=== PATIENT | female | born 1980 | race Caucasian/White ===

== ENCOUNTER 2018-12-04 23:35 | Emergency (ER) | payer SELFPAY ==
[2018-12-04 23:38] VITALS: BMI 25.0
[2018-12-04 23:46] VITALS: RESP 18; TEMP 98.4; O2SAT 100
[2018-12-05] MEDS ORDERED: Sodium Chloride 0.9% 500 ML IV STA (00:08)
[2018-12-05 00:23] VITALS: BP 97/54; PULSE 78
--- NOTE | 2018-12-05 00:36 | ED PDOC ---
Arrival/HPI - General Chief Complaint: Headache Time Seen by Provider: 12/04/18 23:39 Historian: Patient - History of Present Illness Narrative History of Present Illness (Text): 12/05/18 00:53 38-year-old female with no significant past medical history presents the emergency room tonight complaining of headache, dizziness, and reports that she had a syncopal episode today while at work at 4 PM. Patient states while she was at work she started feeling dizzy described as lightheadedness and not vertigo causing her to syncopized at work. States that when she woke up she was surrounded by EMS personnel who offered her to be seen and evaluated at the nearest hospital which at that time she refused. Patient states that her family members brought her in today for further evaluation of the headache and the dizziness. She further adds that 2 days ago she slipped and fell when she was at a spa, she was brought to [facility] where she was evaluated with blood work, x-rays and a CAT scan, states all the test were normal and then she was discharged home. Otherwise she reports no fever, URI, chest pain, shortness of breath, palpitations, abdominal pain, nausea, vomiting, back pain, fever, recent travel. Patient adds that she has a follow-up appointment with the clinic in a few days. PMD none Past Medical History - Infectious Disease Hx of Infectious Diseases: None - Psychiatric Hx Substance Use: No - Anesthesia Hx Anesthesia: No Family/Social History Family/Social History: No Known Family HX Smoking Status: Former Smoker Hx Alcohol Use: No Hx Substance Use: No Allergies/Home Meds Allergies/Adverse Reactions: Allergies No Known Allergies Allergy (Verified 12/04/18 23:38) Review of Systems - Review of Systems Constitutional: absent: Fatigue, Fevers ENT: absent: Sore Throat, Rhinorrhea Respiratory: absent: SOB, Cough Cardiovascular: absent: Chest Pain, Palpitations, Edema Gastrointestinal: absent: Abdominal Pain, Diarrhea, Nausea, Vomiting Genitourinary Female: absent: Dysuria, Frequency, Hematuria Musculoskeletal: absent: Arthralgias, Back Pain, Neck Pain Skin: absent: Rash, Pruritis, Skin Lesions Neurological: Headache, Dizziness. absent: Focal Weakness Physical Exam Vital Signs Temp Pulse Resp BP Pulse Ox 12/05/18 00:22 78 18 97/54 L 100 12/04/18 23:46 98.4 F 67 18 84/51 L 100 Temperature: Afebrile Blood Pressure: Hypotensive Pulse: Regular Respiratory Rate: Normal Appearance: Positive for: Non-Toxic, Comfortable Pain Distress: Mild Mental Status: Positive for: Alert and Oriented X 3 - Systems Exam Head: Present: Atraumatic, Normocephalic Pupils: Present: PERRL Extroacular Muscles: Present: EOMI Conjunctiva: Present: Normal Mouth: Present: Moist Mucous Membranes Neck: Present: Normal Range of Motion. No: Meningeal Signs, MIDLINE TENDERNESS, Paraspinal Tenderness, Lymphadenopathy Respiratory/Chest: Present: Clear to Auscultation, Good Air Exchange. No: Respiratory Distress, Accessory Muscle Use Cardiovascular: Present: Regular Rate and Rhythm, Normal S1, S2. No: Murmurs Abdomen: No: Tenderness, Distention, Peritoneal Signs Back: Present: Normal Inspection Upper Extremity: Present: Normal Inspection. No: Cyanosis, Edema Lower Extremity: Present: Normal Inspection. No: Edema Neurological: Present: GCS=15, CN II-XII Intact, Speech Normal, Motor Func Grossly Intact, Normal Sensory Function Skin: Present: Warm, Dry, Normal Color. No: Rashes Psychiatric: Present: Alert, Oriented x 3, Normal Insight, Normal Concentration Medical Decision Making ED Course and Treatment: 12/05/18 00:30 Plan : - IV - Labs - UA, urine cx - EKG - CXR - Tylenol - NS bolus - Reassess / disposition - CT head - Orthostatic VS Patient is now refusing labs, EKG, chest x-ray, and CT. She states that she does not want any diagnostic workup done in the emergency room since she had all of these test done recently at [place] and everything was normal. Patient states that she only wants medicine for headache. Patient states that she wants to leave AGAINST MEDICAL ADVICE. The patient is choosing to leave against medical advice. I have personally explained to the patient that choosing to do so may result in permanent bodily harm or . I have discussed at great length that without further evaluation and monitoring there may be unforeseen circumstances and/or deterioration causing permanent bodily harm or as a result of their choice. The patient is alert, oriented, and shows the mental capacity to make clear decisions regarding the patients health care at this time. The patient continues to wish to leave against medical advice. In light of the patients decision to leave against medical advice, she was encouraged to follow-up with the clinic at her scheduled appointment, which the patient arranged herself, and the patient is aware of the importance to following up as instructed. The patient has been advised that they should return to the emergency room immediately if they change their mind at any time, or if their condition begins to change or worsen in any way. 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 Disposition/Present on Arrival - Present on Arrival Any Indicators Present on Arrival: No History of DVT/PE: No History of Uncontrolled Diabetes: No Urinary Catheter: No History of Decub. Ulcer: No History Surgical Site Infection Following: None - Disposition Have Diagnosis and Disposition been Completed?: Yes Diagnosis: Syncope, Headache Disposition: AGAINST MEDICAL ADVICE Disposition Time: 00:30 Patient Plan: Other (Patient refusing further evaluation and wishes to leave AMA. ) Patient Problems: Current Active Problems Problem Status Onset Syncope Acute Headache Acute Condition: UNKNOWN Discharge Instructions (ExitCare): Headache, Adult (DC), Leaving Against Medical Advice, Syncope (ED) Referrals: PCP,NO [Primary Care Provider] - Follow up with primary Forms: [employer] (Welsh)
== END 2018-12-05 00:51 | disposition left against medical advice (07) ==
LOC: ED 23:35
DX: R55 Syncope and collapse (principal); R51 Headache